=== PATIENT | male | born 1975 | race Caucasian/White ===

== ENCOUNTER 2018-05-31 21:13 | Emergency (ER) | payer OTHER, SELFPAY ==
[~2018-05-31] VITALS: Ht 188 cm; Wt 107.5 kg
[2018-05-31 21:15] VITALS: BP 167/80
[2018-05-31] MEDS ORDERED: PENICILLIN VK 500MG TABLET ONE (21:49)
[2018-05-31] MEDS ORDERED: PENICILLIN VK 500MG TABLET PO ONE (22:00)
== END 2018-05-31 21:58 | disposition home or self-care (01) ==
LOC: ED 21:45
DX: K02.9 Dental caries, unspecified (principal); K04.7 Periapical abscess without sinus
CPT/HCPCS: 99283